=== PATIENT | female | born 1960 | race Caucasian/White ===

== ENCOUNTER 2022-08-25 06:00 | Day surgery (SDC) | payer BC ==
--- NOTE | 2022-08-24 11:30 | HP ---
DATE OF SURGERY: 08/25/2022 HISTORY OF PRESENT ILLNESS: The patient is a 61-year-old female presents for colonoscopy. Last colonoscopy was seven to ten years ago and she had some polyps. She reports that her mother had colon cancer. She denies GI signs or symptoms at this time. PAST MEDICAL HISTORY: Hypertension, diabetes mellitus type II, thyroid, migraine, arthritis, gastroesophageal reflux disease. PAST SURGICAL HISTORY: Cataract. Cardiac stent. Tonsillectomy. Thyroidectomy. section. Hysterectomy. Cholecystectomy. Fem/fem bypass. ALLERGIES: NKDA. MEDICATIONS: Aspirin, metformin, bupropion, atorvastatin, duloxetine, Xanax, potassium, levothyroxine, valsartan, trazodone, metoprolol, Chlorthalidone, gabapentin, hydralazine. FAMILY HISTORY: Colon cancer. Lung cancer. Hypertension. SOCIAL HISTORY: Light tobacco use, occasional alcohol. REVIEW OF SYSTEMS: CONSTITUTIONAL: Denies fever or chills. CHEST: Denies shortness of breath. CVS: Denies chest pain. ABDOMEN: Denies abdominal pain. PHYSICAL EXAMINATION: GENERAL: No acute distress. CHEST: Nonlabored. No shortness of breath. CVS: Regular rate and rhythm. ABDOMEN: Soft. IMPRESSION: History of colon polyps, family history of colon cancer. PLAN: Colonoscopy with Dr. Ricki Shepard. As dictated by China King NP.
[2022-08-25] MEDS ORDERED: Lactated Ringers 1,000 ML IV SCH (06:30)
[2022-08-25] MEDS ORDERED: DIPRIVAN 200 MG/20 ML IV ONE ×2 (06:58→08:35)
[2022-08-25] MEDS ORDERED: Versed 2 MG/2 ML Injection ONE (06:59)
[2022-08-25 07:50] LABS: ALBUMIN 3.8 g/dL (3.5-5.0); ALKALINE PHOSPHATASE 100 U/L (38-126); ANION GAP 15.3 MEQ/L (5-15); BLOOD UREA NITROGEN 12 mg/dL (7-17); CHLORIDE 102 mmol/L (98-107); Calcium 8.9 mg/dL (8.4-10.2); Carbon Dioxide 30 mmol/L (22-30); Creatinine 1 0.72 mg/dL (0.52-1.04); EST GLOMERULAR FILTRATION RATE > 60.0 ML/MIN; Glucose 112 mg/dL (74-106); Potassium 3.2 mmol/L (3.5-5.1); SGOT/AST 28 U/L (14-36); SGPT/ALT 21 U/L (0-35); SODIUM 143 mmol/L (137-145); Total Protein 6.6 g/dL (6.3-8.2)
[2022-08-25 09:26] VITALS: O2SAT 97
[2022-08-25 09:56] VITALS: BP 113/87; PULSE 68
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
== END 2022-08-25 10:03 | disposition home or self-care (01) ==
LOC: SDC 06:00
PROVIDERS: ATTEND Surgery
DX: Z09 Encounter for follow-up examination after completed treatment for conditions other than malignant neoplasm (principal); Z86.010 Personal history of colon polyps; Z80.0 Family history of malignant neoplasm of digestive organs; D12.7 Benign neoplasm of rectosigmoid junction; D12.2 Benign neoplasm of ascending colon; D12.5 Benign neoplasm of sigmoid colon
CPT/HCPCS: 36415; 80053; 93005; J2250; J2704

== ENCOUNTER 2024-07-02 13:26 | Emergency (ER) | payer BC ==
[2024-07-02 14:19] VITALS: TEMP 98.1
--- NOTE | 2024-07-02 14:31 | ERPHSYRPT ---
- History of Present Illness Time Seen by Provider: 07/02/24 14:30 Source: patient Exam Limitations: no limitations Patient Subjective Stated Complaint: pt here today for left lower leg pain off and on for a couple days now, she denies any injury she hx of femoral bypass in that leg Triage Nursing Assessment: pt alert, walked in, resp easy, skin w/d/p left leg cooler to touch, moves toes well,no pedal pulse felt, dr bain to get pulse with doppler . Physician History: 63-year-old female presents to our ED for evaluation of an ischemic limb. Patient states her symptoms started yesterday. Patient states her pain was unbearable last night. However this afternoon pain became acutely worse. Patient reports a history of a left iliac artery stent. This was done at [facility] per patient. Patient sees Dr. Senior locally. We contacted [facility] for transfer. However Dr. Senior the vascular surgeon only sees vascular issues from the waist up not down involving the lower extremities. Patient's pain described as an ache that is constant. She is able to move her ankle and her toes however her sensation is diminished. Patient's PT DP pulses not dopplerable. Her popliteal pulse is not dopplerable. Patient has monophasic femoral pulse. Patient otherwise feels well. Patient's left lower extremity is cool to touch. It is pale appearing. Patient denies trauma. No systemic manifestation of her symptomology. No chest pain or shortness of breath. No nausea vomiting or diaphoresis. Significant other at bedside. They voiced no other complaints or concerns at this time. Portions of this note were created with voice recognition technology. There may be grammatical, spelling, punctuation or sound alike errors Timing/Duration: yesterday Severity: moderate Modifying Factors: Improves With: nothing Associated Symptoms: denies symptoms Allergies/Adverse Reactions: No Known Drug Allergies Allergy (Verified 07/02/24 13:48) Home Medications: Aspirin EC 81 mg [Ecotrin 81 mg] 2 tab PO DAILY 07/18/22 [History] Atorvastatin Calcium 40 mg PO HS 07/18/22 [History] Chlorthalidone 25 mg PO DAILY 07/18/22 [History] Cholecalciferol (Vitamin D3) [Vitamin D] 2,000 units PO DAILY 07/18/22 [History] Duloxetine HCl 30 mg [Cymbalta 30 MG Capsule] 60 mg PO DAILY 07/18/22 [History] Gabapentin [Neurontin ] 400 mg PO HS 07/18/22 [History] Hydralazine HCl 25 mg PO BID 07/18/22 [History] Levothyroxine Sodium 112 Mcg [Synthroid 112 Mcg] 112 mcg PO DAILY 07/18/22 [History] Metformin HCl 500 mg [Glucophage 500 MG] 500 mg PO BID 07/18/22 [History] Metoprolol Succinate 100 mg [Toprol Xl 100 MG] 100 mg PO DAILY 07/18/22 [History] Potassium Chloride 10 meq PO DAILY 07/18/22 [History] Valsartan 320 mg PO DAILY 07/18/22 [History] Hx Influenza Vaccination/Date Given: Yes Hx Pneumococcal Vaccination/Date Given: Yes Immunizations Up to Date: Yes Travel Risk - International Travel Have you traveled outside of the country in past 3 weeks: No - Emerging Infectious Disease Are you exhibiting symptoms associated with any current EIDs: No - Review of Systems Constitutional: No Symptoms, No Fever, No Chills Eyes: No Symptoms Ears, Nose, & Throat: No Symptoms Respiratory: No Symptoms, No Cough, No Dyspnea Cardiac: No Symptoms, No Chest Pain, No Edema, No Syncope Abdominal/Gastrointestinal: No Symptoms, No Abdominal Pain, No Nausea, No Vomiting, No Diarrhea Genitourinary Symptoms: No Symptoms, No Dysuria Musculoskeletal: No Symptoms, No Back Pain, No Neck Pain Skin: No Symptoms, No Rash Neurological: No Symptoms, No Dizziness, No Focal Weakness, No Sensory Changes Psychological: No Symptoms Endocrine: No Symptoms Hematologic/Lymphatic: No Symptoms Immunological/Allergic: No Symptoms All Other Systems: Reviewed and Negative - Past Medical History Pertinent Past Medical History: Yes Neurological History: No Pertinent History ENT History: No Pertinent History Cardiac History: Coronary Artery Disease, Deep Vein Thrombosis, High Cholesterol, Hypertension Respiratory History: COPD Endocrine Medical History: Diabetes Type II Musculoskeletal History: No Pertinent History GI Medical History: No Pertinent History History: No Pertinent History Psycho-Social History: Depression Female Reproductive Disorders: No Pertinent History Other Medical History: left iliac artery-fem/fem bypass - Past Surgical History Past Surgical History: Yes Neuro Surgical History: No Pertinent History Cardiac: Other Respiratory: No Pertinent History Gastrointestinal: Cholecystectomy Genitourinary: No Pertinent History Musculoskeletal: No Pertinent History Female Surgical History: Hysterectomy, Section Other Surgical History: fen/fen bypass 2018, cardiac stent placed - Social History Smoking Status: Current every day smoker Exposure to second hand smoke: Yes Drug Use: none - Social Determinants of Health Will the patient participate in the screening: Declined to provide - Nursing Vital Signs Nursing Vital Signs: Initial Vital Signs Temperature 98.1 F 07/02/24 14:10 Pulse Rate 70 07/02/24 14:10 Respiratory Rate 18 07/02/24 14:10 Blood Pressure 164/84 07/02/24 14:10 O2 Sat by Pulse Oximetry 98 07/02/24 14:10 Pain Scale Pain Intensity 8 - Physical Exam General Appearance: no apparent distress, alert Eye Exam: PERRL/EOMI, eyes nml inspection Ears, Nose, Throat Exam: normal ENT inspection, moist mucous membranes Neck Exam: normal inspection, full range of motion Respiratory Exam: normal breath sounds, lungs clear, No respiratory distress Cardiovascular Exam: regular rate/rhythm, normal heart sounds, normal peripheral pulses Gastrointestinal/Abdomen Exam: soft, normal bowel sounds, No tenderness, No mass Back Exam: normal inspection, normal range of motion, No CVA tenderness, No vertebral tenderness Extremity Exam: normal inspection, normal range of motion, pelvis stable, other (Monophasic dopplerable left femoral pulse. None dopplerable left popliteal and nondopplerable left PT DP pulse. The extremity is cool to touch. Cap refill greater than 3 seconds. Sensation diminished. Active range of motion within normal limits.) Neurologic Exam: alert, oriented x 3, cooperative, normal mood/affect, nml cerebellar function, nml station & gait, sensation nml, No motor deficits Skin Exam: normal color, warm, dry, No rash Lymphatic Exam: No adenopathy SpO2 Interpretation: normal SpO2: 98 O2 Delivery: Room Air - Course Nursing assessment & vital signs reviewed: Yes - CT Exams Abdomen/Pelvis CT Interpretation: Tele-radiologist Report (Occluded left aortoiliac stent left popliteal artery. Right adrenal mass) Ordered Tests: Active Orders 24 hr Category Date Time Status Alkylation Operator STAT Care 07/02/24 14:25 Active IV Insertion STAT Care 07/02/24 14:24 Active Pulse Oximetry (ED) STAT Care 07/02/24 14:24 Active Telemetry q4h Care 07/02/24 15:45 Active CTA ABD/PEL W FEM RUNOFF [CT] Stat Exams 07/02/24 14:34 Completed CBC W DIFF Stat Lab 07/02/24 15:20 Completed CMP Stat Lab 07/02/24 15:20 Completed UA W/RFX UR CULTURE Stat Lab 07/02/24 15:26 Ordered Medication Summary Generic Name Dose Route Start Last Admin Trade Name Kassy PRN Reason Stop Dose Admin Potassium Chloride 20 meq in 100 mls @ 50 mls/hr 07/02/24 15:45 07/02/24 15:50 Potassium Chloride 20 Meq In Water 100ml IV 07/02/24 19:44 50 mls/hr Q2H DAMIÁN Administration Sodium Chloride 1,000 mls @ 100 mls/hr 07/02/24 16:00 07/02/24 15:50 Sodium Chloride 0.9% 1000 Ml IV 08/01/24 15:59 100 mls/hr .Q10H DAMIÁN Administration Discontinued Medications Generic Name Dose Route Start Last Admin Trade Name Kassy PRN Reason Stop Dose Admin Morphine Sulfate 4 mg 07/02/24 15:48 07/02/24 15:54 Morphine Sulfate 4 Mg/Ml Injection IV 07/02/24 15:49 4 mg STAT ONE Administration Morphine Sulfate Confirm 07/02/24 15:51 Morphine Sulfate 4 Mg/Ml Injection Administered 07/02/24 15:52 Dose 4 mg .ROUTE .STK-MED ONE Ondansetron HCl 4 mg 07/02/24 15:48 07/02/24 15:52 Ondansetron Hcl 4 Mg/2 Ml Vial IV 07/02/24 15:49 4 mg STAT ONE Administration Ondansetron HCl Confirm 07/02/24 15:51 Ondansetron Hcl 4 Mg/2 Ml Vial Administered 07/02/24 15:52 Dose 4 mg .ROUTE .STK-MED ONE Lab/Rad Data: Laboratory Result Diagrams 07/02/24 15:20 07/02/24 15:20 Laboratory Results 07/02/24 07/02/24 Range/Units 15:20 15:20 WBC 8.7 (3.98-10.04) x10^3/uL RBC 4.36 (3.93-5.22) x10^6/uL Hgb 13.2 (11.2-15.7) g/dL Hct 40.1 (34.1-44.9) % MCV 92.0 (79.4-94.8) fL MCH 30.3 (25.6-32.2) pg MCHC 32.9 (32.2-35.5) g/dL RDW 13.6 (11.7-14.4) % Plt Count 164 L (182-369) x10^3/uL MPV 10.5 (9.4-12.3) fL Gran % 62.5 (34.0-71.1) % Immature Gran % (Auto) 0.6 H (0.001-0.429) % Nucleat RBC Rel Count 0.0 (0.00-0.2) % Eos # (Auto) 0.03 L (0.04-0.36) x10^3/uL Immature Gran # (Auto) 0.05 H (0.001-0.031) x10^3u/L Absolute Lymphs (auto) 2.60 (1.18-3.74) x10^3/uL Absolute Monos (auto) 0.58 (0.24-0.86) x10^3/uL Absolute Nucleated RBC 0.00 (0.00-0.012) x10^3u/L Lymphocytes % 29.8 (19.3-51.7) % Monocytes % 6.6 (4.7-12.5) % Eosinophils % 0.3 L (0.7-5.8) % Basophils % 0.2 (0.1-1.2) % Absolute Granulocytes 5.45 (1.56-6.13) x10^3/uL Basophils # 0.02 (0.01-0.08) x10^3/uL Sodium 133 L (135-145) mmol/L Potassium 3.3 L (3.5-5.1) mmol/L Chloride 96 L (98-107) mmol/L Carbon Dioxide 28 (22-30) mmol/L Anion Gap 11.9 (5-15) MEQ/L BUN 22 H (7-17) mg/dL Creatinine 0.91 (0.52-1.04) mg/dL Estimated GFR 71.8 ML/MIN Glucose 86 (74-106) mg/dL Calcium 8.8 (8.4-10.2) mg/dL Total Bilirubin 0.80 (0.2-1.3) mg/dL AST 26 (14-36) U/L ALT 22 (0-35) U/L Alkaline Phosphatase 77 (38-126) U/L Serum Total Protein 6.7 (6.3-8.2) g/dL Albumin 3.8 (3.5-5.0) g/dL - Progress Progress: improved Progress Note: Dr. Galindo spoke to the transfer center at approximately 230. They advised obtaining imaging studies prior to transfer. I disagreed. I advised them that patient has an acutely ischemic limb and that patient needs immediate transfer. [place] [facility] is contacting the vascular surgeon Dr. Thornton to advise if they are willing to accept without an imaging study. In the meantime we have ordered an imaging study, CTA abdomen pelvis with runoff 07/02/24 14:34 63-year-old female presents to our ED for evaluation of left leg pain. Physical exam reveals an ischemic limb. Diminished sensation however active motion present. The extremity is cool to touch and pale with diminished cap refill. Monophasic left femoral pulse observed. No pulse dopplerable at the left po pliteal or left PT DP arteries. CT scan reveals an occluded left aortoiliac stent left popliteal artery and a right adrenal mass. Other findings observed. Please see CT scan note for details. Patient received 4 mg morphine for pain control. Patient was hypokalemic at 3.3. K rider hung. IV fluids administered. Patient accepted by Dr. Thornton at 1508. Plan of care discussed with patient. She agrees to transfer to via [employer] [facility] for further evaluation and treatment. Complexity of problem addressed is moderate acute complicated. Critical care approximately 120 minutes. Immediate intervention indicated to prevent further deterioration of an ischemic limb. Complexity of data reviewed and analyzed is extensive. Test ordered test reviewed results analyzed and correlated clinically with history and physical exam. Case discussed with transfer center/vascular surgeon who accepts transfer at 1508. Vital stable. Time spent to transfer patient is approximately 30 minutes. Plan of care established for shared decision making. No social determinants of health present to impede follow-up. Portions of this note were created with voice recognition technology. There may be grammatical, spelling, punctuation or sound alike errors 07/02/24 14:38 Counseled pt/family regarding: lab results, diagnosis, rad results - Departure Departure Disposition: Home Clinical Impression: Ischemic leg, Hypokalemia, Right adrenal mass, Occluded left aortoiliac stent, Left popliteal artery occlusion Condition: Stable Critical Care Time: Yes Critical Care Time(excluding separately billable procedures): Critical 105-134 mins Referrals: GEOVANI BARBA [Primary Care Provider] - Follow up/PCP as directed
[2024-07-02 15:25] LABS: Absolute Neutrophil Ct (ANC) 5.45 x10^3/uL (1.56-6.13); BASOPHIL % 0.2 % (0.1-1.2); Basophil (Absolute #) 0.02 x10^3/uL (0.01-0.08); Eosinophil % 0.3 % (0.7-5.8); Eosinophil (Absolute #) 0.03 x10^3/uL (0.04-0.36); Hematocrit 40.1 % (34.1-44.9); Hemoglobin 13.2 g/dL (11.2-15.7); IMMATURE GRAN # 0.05 x10^3u/L (0.001-0.031); IMMATURE GRAN % 0.6 % (0.001-0.429); Lymphocytes % 29.8 % (19.3-51.7); Mean Corpuscular Hemoglobin 30.3 pg (25.6-32.2); Mean Corpuscular Hgb Concent. 32.9 g/dL (32.2-35.5); Mean Platelet Volume 10.5 fL (9.4-12.3); Monocyte (Absolute #) 0.58 x10^3/uL (0.24-0.86); Monocytes % 6.6 % (4.7-12.5); Neutrophil % 62.5 % (34.0-71.1); Platelet Count 164 x10^3/uL (182-369); Red Blood Count 4.36 x10^6/uL (3.93-5.22); Red Cell Distribution Width 13.6 % (11.7-14.4); White Blood Count 8.7 x10^3/uL (3.98-10.04)
[2024-07-02 15:38] LABS: ALBUMIN 3.8 g/dL (3.5-5.0); ANION GAP 11.9 MEQ/L (5-15); BILIRUBIN,TOTAL 0.8 mg/dL (0.2-1.3); Calcium 8.8 mg/dL (8.4-10.2); Creatinine 1 0.91 mg/dL (0.52-1.04); EST GLOMERULAR FILTRATION RATE 71.8 ML/MIN; Potassium 3.3 mmol/L (3.5-5.1); Total Protein 6.7 g/dL (6.3-8.2)
--- NOTE | 2024-07-02 15:45 | XRAY ---
Indication: Ischemic limb. Conventional contrast-enhanced CTA abdomen/pelvis with bilateral runoff performed using 120 cc Isovue 370 contrast. 2-D sagittal and coronal reformatted images obtained. Additional 3-D reformatted images obtained using separate workstation. Comparison: None Proximal abdominal aorta demonstrates mild arteriosclerotic disease with patent branching celiac, superior mesenteric, and left/right main renal arteries. Inferior to renal artery branch, there is aorto left iliac stent that is occluded. Reconstitution left common femoral artery via deep branches with minimal eccentric calcifications distally. Femoral-femoral bypass graft that appears patent. Left leg runoff demonstrates normal CTA appearance to the deep femoral, superficial femoral, and mid to proximal popliteal arteries. Occlusion distal popliteal artery and proximal tibial peroneal trunk. Reconstitution distal tibioperoneal trunk and also trifurcation vessels via deep intramuscular branches. Trifurcation vessels taper off distally above ankle. Right leg runoff demonstrates occlusion right common iliac, external iliac, and majority common femoral arteries. Reconstitution distal common femoral via femoral-femoral bypass graft. Normal CTA appearance to the superficial femoral, deep femoral, and popliteal arteries. Trifurcation vessels demonstrates peroneal artery tapering off by lower leg level. Only patent anterior and posterior tibial arteries cross ankle joint to supply right foot. Incidental 2.6 x 2.2 cm left and 1.7 x 1.3 cm right adrenal gland masses that appear to be adenomas as seen on CT low-dose lung screening exam December 13, 2023. Noncontrasted stomach and bowel loops appear nonobstructed. Previous cholecystectomy and hysterectomy. No free fluid/air. Remaining liver, pancreas, spleen, kidneys, ureters, and bladder are unremarkable. No pathologic retroperitoneal lymphadenopathy. Lung bases clear. Heart not enlarged. Osseous structures intact with mild L5-S1 degenerative vacuum disc phenomena. Impression: 1. Mildly arteriosclerotic proximal abdominal aorta. Occluded infrarenal aorta left iliac stent. Probable patent femoral-femoral bypass graft. 2. Left leg runoff demonstrates occluded left iliac vessels with reconstitution distal common femoral artery. Normal CTA appearance to the femoral and popliteal arteries. Occlusion distal popliteal artery/tibial peroneal trunk with immediate reconstitution. Trifurcation vessels all taper off by lower leg level with no opacified artery crossing ankle joint. 3. Right leg runoff demonstrates occlusion right iliac vessels. Remaining right leg runoff widely patent with two-vessel runoff into right foot. 4. Incidental bilateral adrenal adenomas and lumbosacral junction degenerative disc disease.
[2024-07-02 15:47] VITALS: O2SAT 98
[2024-07-02] MEDS ORDERED: Sodium Chloride 0.9% 1000 ML 1,000 ML ONE (15:48)
[2024-07-02] MEDS ORDERED: POTASSIUM CHLORIDE 20 mEq IN WATER 100ML 100 ML IV ONE (15:48)
[2024-07-02] MEDS: Sodium Chloride 0.9% 1000 ML 1,000 ML IV SCH (15:50)
[2024-07-02] MEDS: POTASSIUM CHLORIDE 20 mEq IN WATER 100ML 20 MEQ/100 ML BAG IV SCH (15:50)
[2024-07-02] MEDS ORDERED: Zofran 4 MG/2 ML VIAL ONE (15:51)
[2024-07-02] MEDS ORDERED: MORPHINE SULFATE 4 MG INJ ONE (15:51)
[2024-07-02] MEDS: Zofran 4 MG/2 ML VIAL IV ONE (15:52)
[2024-07-02] MEDS: MORPHINE SULFATE 4 MG INJ IV ONE (15:54)
[2024-07-02 16:05] VITALS: BP 142/59; PULSE 68; RESP 16
[2024-07-02 16:28] LABS: Appearance Clear (Clear); Bacteria Rare /HPF (None Seen); Bilirubin Negative (Negative); Blood Negative (Negative); Epithelial Cells Few /HPF (None Seen); Glucose, Urine Negative (Negative); Hyaline Casts NONE SEEN /LPF (0-2); Ketones Negative (Negative); Leukocyte Esterase Negative (Negative); Nitrite Negative (Negative); Ph 6.5 (4.6-8.0); Protein,Urine Dip Negative (Negative); RBC 0-2 /HPF (0-5); Specific Gravity 1.025 (1.005-1.030); Urobilinogen 0.2 mg/dL (0.2); WBC 0-2 /HPF (0-5)
== END 2024-07-02 16:00 | disposition short-term general hospital (02) ==
LOC: ED 13:26
DX: I70.222 Atherosclerosis of native arteries of extremities with rest pain, left leg (principal); E87.6 Hypokalemia; E27.8 Other specified disorders of adrenal gland; I70.8 Atherosclerosis of other arteries; E78.5 Hyperlipidemia, unspecified; I10 Essential (primary) hypertension; E11.9 Type 2 diabetes mellitus without complications; Z79.84 Long term (current) use of oral hypoglycemic drugs; Z79.899 Other long term (current) drug therapy; Z72.0 Tobacco use
CPT/HCPCS: 36415; 75635; 80053; 81001; 85025; 93041; 94760; 96365; 96366; 96374; 96375; 99285; 99291; 99292; J2270; J2405; J3480

== ENCOUNTER 2024-08-09 11:39 | Emergency (ER) | payer BC ==
[2024-08-09 12:12] VITALS: TEMP 98.2
--- NOTE | 2024-08-09 12:29 | ERPHSYRPT ---
- History of Present Illness Time Seen by Provider: 08/09/24 12:11 Historian: patient Exam Limitations: no limitations Patient Subjective Stated Complaint: pt reports recent surgery r/t an occluded femoral artery, pt states her initial surgery was in 2017 and it failed in 07/23, at that time she was transferred to [facility], and had surgery on 07/03/24. pt reports post op infection and wound for which she is still getting treatment. pt reports diarrhea for the last month r/t antibiotics. pt reports bright red blood from her rectum that started last evening, pt states that the blood flow is heavy and it contains clots. pt reports she is also unable to urinate. Triage Nursing Assessment: pt is aox3, pupils perrl, afebrile, resps easy and non labored, cap refill < 3 seconds, radial pulses strong and equal, pt abd is soft, tender to all quads, slightly distended. pt with abdominal wound to the LLQ with isma drain in place. dressing is CDI. isma drainage is sanguineous. pt with healing surgical incision to the left upper thigh. pt appears pale. mucous membranes dry. Physician History: Pt states she has had constant lower mid abdominal pain and diarrhea for the past month and started with rectal bleeding last night. Pt states she is on blood thinners. Pt told me she was admitted to [facility] on 07/02/24 for a left iliac occlusion and had 3 stents placed; states the incision opened and on 07/22/[address] [facility] where the wound was cleaned out and she stayed in the hospital for about 1 week. Pt denies chest pain, shortness of air, fever, vomiting. Allergies/Adverse Reactions: No Known Drug Allergies Allergy (Verified 08/09/24 12:12) Home Medications: Aspirin EC 81 mg [Ecotrin 81 mg] 2 tab PO DAILY 07/18/22 [History] Atorvastatin Calcium 40 mg PO HS 07/18/22 [History] Chlorthalidone 25 mg PO DAILY 07/18/22 [History] Cholecalciferol (Vitamin D3) [Vitamin D] 2,000 units PO DAILY 07/18/22 [History] Duloxetine HCl 30 mg [Cymbalta 30 MG Capsule] 60 mg PO DAILY 07/18/22 [History] Gabapentin [Neurontin ] 400 mg PO HS 07/18/22 [History] Hydralazine HCl 25 mg PO BID 07/18/22 [History] Levothyroxine Sodium 112 Mcg [Synthroid 112 Mcg] 112 mcg PO DAILY 07/18/22 [History] Metformin HCl 500 mg [Glucophage 500 MG] 500 mg PO BID 07/18/22 [History] Metoprolol Succinate 100 mg [Toprol Xl 100 MG] 100 mg PO DAILY 07/18/22 [History] Potassium Chloride 10 meq PO DAILY 07/18/22 [History] Valsartan 320 mg PO DAILY 07/18/22 [History] Hx Tetanus, Diphtheria Vaccination/Date Given: Yes Hx Influenza Vaccination/Date Given: Yes Hx Pneumococcal Vaccination/Date Given: Yes Immunizations Up to Date: No Travel Risk - International Travel Have you traveled outside of the country in past 3 weeks: No - Emerging Infectious Disease Are you exhibiting symptoms associated with any current EIDs: No - Review of Systems Constitutional: No Fever Respiratory: No Dyspnea Cardiac: No Chest Pain Abdominal/Gastrointestinal: Abdominal Pain, Hematochezia, No Vomiting Neurological: No Headache - Past Medical History Pertinent Past Medical History: Yes Neurological History: No Pertinent History ENT History: No Pertinent History Cardiac History: Coronary Artery Disease, Deep Vein Thrombosis, High Cholesterol, Hypertension Respiratory History: COPD Endocrine Medical History: Diabetes Type II Musculoskeletal History: No Pertinent History GI Medical History: No Pertinent History History: No Pertinent History Psycho-Social History: Depression Female Reproductive Disorders: No Pertinent History Other Medical History: left iliac artery-fem/fem bypass - Past Surgical History Past Surgical History: Yes Neuro Surgical History: No Pertinent History Cardiac: Other Respiratory: No Pertinent History Gastrointestinal: Cholecystectomy Genitourinary: No Pertinent History Musculoskeletal: No Pertinent History Female Surgical History: Hysterectomy, Section Other Surgical History: fen/fen bypass 2018, cardiac stent placed - Social History Smoking Status: Former smoker Exposure to second hand smoke: Yes Drug Use: none - Social Determinants of Health Will the patient participate in the screening: Declined to provide - Nursing Vital Signs Nursing Vital Signs: Initial Vital Signs Temperature 98.2 F 08/09/24 11:44 Pulse Rate 78 08/09/24 11:44 Respiratory Rate 16 08/09/24 11:44 Blood Pressure 130/88 08/09/24 11:44 O2 Sat by Pulse Oximetry 100 08/09/24 11:44 Pain Scale Pain Intensity 8 - Physical Exam General Appearance: alert Eye Exam: eyes nml inspection Ears, Nose, Throat Exam: pharynx normal Neck Exam: normal inspection Respiratory Exam: chest tenderness Cardiovascular Exam: normal heart sounds Gastrointestinal/Abdomen Exam: soft, normal bowel sounds, other (healing wound over left inguinal area without discharge; wound vac present.) Rectal Exam: other (no external hemorrhoids seen(ER Nurse present during exam); bright red blood dripping from anus.) Back Exam: normal inspection Neurologic Exam: alert, cooperative Skin Exam: pale SpO2 Interpretation: normal SpO2: 100 O2 Delivery: Room Air - Course Nursing assessment & vital signs reviewed: Yes - CT Exams Abdomen/Pelvis CT Interpretation: Discussed w/radiologist (New colonic fecal stasis. New rectal circumferential wall thickening with stranding favoring proctitis. New left groin postsurgical changes with new left common femoral stent. Also new left groin subcutaneous fluid collection presumed postoperative hematoma/seroma. Infection not completely excluded.) Ordered Tests: Active Orders 24 hr Category Date Time Status Catheter-Waldorf Turk STAT Care 08/09/24 12:27 Active IV Insertion-2nd Peripheral STAT Care 08/09/24 12:25 Active ABDOMEN AND PELVIS W/0 CONTRAS [CT] Stat Exams 08/09/24 12:27 Completed BLOOD CULTURE Stat Lab 08/09/24 12:41 Received CBC W DIFF Stat Lab 08/09/24 12:59 Completed CMP Stat Lab 08/09/24 12:59 Completed CULTURE,URINE Stat Lab 08/09/24 13:13 Received PROTIME WITH INR Stat Lab 08/09/24 12:59 Completed PTT Stat Lab 08/09/24 12:59 Completed UA W/RFX UR CULTURE Stat Lab 08/09/24 13:13 Completed Medication Summary Generic Name Dose Route Start Last Admin Trade Name Freq PRN Reason Stop Dose Admin Octreotide Acetate 150 mcg/ 103 mls @ 34.333 mls/hr 08/09/24 13:45 08/09/24 13:46 Sodium Chloride IV 08/09/24 16:44 34.333 mls/hr ONCE ONE 34.33 mls/hr Administration Sodium Chloride 1,000 mls @ 100 mls/hr 08/09/24 14:15 08/09/24 14:08 Sodium Chloride 0.9% 1000 Ml IV 09/08/24 14:14 100 mls/hr .Q10H DAMIÁN Administration Octreotide Acetate 50 mcg 08/09/24 12:45 08/09/24 13:35 Octreotide Acetate 50 Mcg/Ml Ampul IV 09/08/24 12:44 50 mcg 1XONLY DAMIÁN Administration Discontinued Medications Generic Name Dose Route Start Last Admin Trade Name Boboq PRN Reason Stop Dose Admin Ceftriaxone Sodium 1,000 mg 08/09/24 14:45 08/09/24 14:54 Ceftriaxone Sodium 1000 Mg Inj Vial IM 08/09/24 14:46 1,000 mg STAT ONE Administration Ceftriaxone Sodium Confirm 08/09/24 14:51 Ceftriaxone Sodium 1000 Mg Inj Vial Administered 08/09/24 14:52 Dose 1,000 mg .ROUTE .STK-MED ONE Hydromorphone HCl 0.5 mg 08/09/24 14:46 08/09/24 14:53 Hydromorphone 1 Mg/1ml Inj IM 08/09/24 14:47 0.5 mg STAT ONE Administration Hydromorphone HCl Confirm 08/09/24 14:51 Hydromorphone 1 Mg/1ml Inj Administered 08/09/24 14:52 Dose 1 mg .ROUTE .STK-MED ONE Sodium Chloride 1,000 mls @ 999 mls/hr 08/09/24 12:25 08/09/24 14:04 Sodium Chloride 0.9% 1000 Ml IV 08/09/24 13:25 Infused .Q1H1M STA Infusion Sodium Chloride Confirm 08/09/24 12:36 Sodium Chloride 0.9% 1000 Ml Administered 08/09/24 12:37 Dose 1,000 mls @ ud .ROUTE .STK-MED ONE Lidocaine HCl Confirm 08/09/24 14:51 Lidocaine Hcl 1% 20 Ml Mdv 20 Ml Ml Administered 08/09/24 14:52 Dose 3 ml .ROUTE .STK-MED ONE Pantoprazole Sodium 40 mg 08/09/24 12:25 08/09/24 12:37 Pantoprazole 40 Mg Vial IV 08/09/24 12:26 40 mg STAT ONE Administration Pantoprazole Sodium Confirm 08/09/24 12:36 Pantoprazole 40 Mg Vial Administered 08/09/24 12:37 Dose 40 mg IV .STK-MED ONE Lab/Rad Data: Laboratory Result Diagrams 08/09/24 12:59 08/09/24 12:59 Laboratory Results 08/09/24 08/09/24 08/09/24 Range/Units 13:13 12:59 12:59 WBC (3.98-10.04) x10^3/uL RBC (3.93-5.22) x10^6/uL Hgb (11.2-15.7) g/dL Hct (34.1-44.9) % MCV (79.4-94.8) fL MCH (25.6-32.2) pg MCHC (32.2-35.5) g/dL RDW (11.7-14.4) % Plt Count (182-369) x10^3/uL MPV (9.4-12.3) fL Gran % (34.0-71.1) % Immature Gran % (Auto) (0.001-0.429) % Nucleat RBC Rel Count (0.00-0.2) % Eos # (Auto) (0.04-0.36) x10^3/uL Immature Gran # (Auto) (0.001-0.031) x10^3u/L Absolute Lymphs (auto) (1.18-3.74) x10^3/uL Absolute Monos (auto) (0.24-0.86) x10^3/uL Absolute Nucleated RBC (0.00-0.012) x10^3u/L Lymphocytes % (19.3-51.7) % Monocytes % (4.7-12.5) % Eosinophils % (0.7-5.8) % Basophils % (0.1-1.2) % Absolute Granulocytes (1.56-6.13) x10^3/uL Basophils # (0.01-0.08) x10^3/uL PT (9.4-12.5) SECONDS INR (0.8-3.0) APTT (25.1-36.5) SECONDS Sodium (135-145) mmol/L Potassium (3.5-5.1) mmol/L Chloride (98-107) mmol/L Carbon Dioxide (22-30) mmol/L Anion Gap (5-15) MEQ/L BUN (7-17) mg/dL Creatinine (0.52-1.04) mg/dL Estimated GFR ML/MIN Glucose (74-106) mg/dL Calcium (8.4-10.2) mg/dL Total Bilirubin (0.2-1.3) mg/dL AST (14-36) U/L ALT (0-35) U/L Alkaline Phosphatase (38-126) U/L Serum Total Protein (6.3-8.2) g/dL Albumin (3.5-5.0) g/dL Urine Color Yellow (Yellow) Urine Appearance Clear (Clear) Urine pH 7.5 (4.6-8.0) Ur Specific [place] <=1.005 (1.005-1.030) Urine Protein Trace A (Negative) Urine Glucose (UA) Negative (Negative) mg/dL Urine Ketones Negative (Negative) Urine Blood Negative (Negative) Urine Nitrite Negative (Negative) Urine Bilirubin Negative (Negative) Urine Urobilinogen 0.2 (0.2) mg/dL Ur Leukocyte Esterase Trace A (Negative) U Hyaline Cast (Auto) NONE SEEN (0-2) /LPF Urine Microscopic RBC 0-2 (0-5) /HPF Urine Microscopic WBC 0-2 (0-5) /HPF Ur Epithelial Cells None Seen (None Seen) /HPF Urine Bacteria None Seen (None Seen) /HPF Urine Culture Reflexed ORDERED SEPARATELY (NO) ABO Group Rh Factor Antibody Screen (NEGATIVE) Crossmatch COMPATIBLE COMPATIBLE (COMPATIBLE) 08/09/24 08/09/24 08/09/24 Range/Units 12:59 12:59 12:59 WBC (3.98-10.04) x10^3/uL RBC (3.93-5.22) x10^6/uL Hgb (11.2-15.7) g/dL Hct (34.1-44.9) % MCV (79.4-94.8) fL MCH (25.6-32.2) pg MCHC (32.2-35.5) g/dL RDW (11.7-14.4) % Plt Count (182-369) x10^3/uL MPV (9.4-12.3) fL Gran % (34.0-71.1) % Immature Gran % (Auto) (0.001-0.429) % Nucleat RBC Rel Count (0.00-0.2) % Eos # (Auto) (0.04-0.36) x10^3/uL Immature Gran # (Auto) (0.001-0.031) x10^3u/L Absolute Lymphs (auto) (1.18-3.74) x10^3/uL Absolute Monos (auto) (0.24-0.86) x10^3/uL Absolute Nucleated RBC (0.00-0.012) x10^3u/L Lymphocytes % (19.3-51.7) % Monocytes % (4.7-12.5) % Eosinophils % (0.7-5.8) % Basophils % (0.1-1.2) % Absolute Granulocytes (1.56-6.13) x10^3/uL Basophils # (0.01-0.08) x10^3/uL PT 12.3 (9.4-12.5) SECONDS INR 1.14 (0.8-3.0) APTT 28.5 (25.1-36.5) SECONDS Sodium 139 (135-145) mmol/L Potassium 3.7 (3.5-5.1) mmol/L Chloride 104 (98-107) mmol/L Carbon Dioxide 27 (22-30) mmol/L Anion Gap 12.1 (5-15) MEQ/L BUN 13 (7-17) mg/dL Creatinine 1.42 H (0.52-1.04) mg/dL Estimated GFR 42.1 ML/MIN Glucose 109 H (74-106) mg/dL Calcium 8.6 (8.4-10.2) mg/dL Total Bilirubin 0.60 (0.2-1.3) mg/dL AST 28 (14-36) U/L ALT 23 (0-35) U/L Alkaline Phosphatase 86 (38-126) U/L Serum Total Protein 6.3 (6.3-8.2) g/dL Albumin 3.3 L (3.5-5.0) g/dL Urine Color (Yellow) Urine Appearance (Clear) Urine pH (4.6-8.0) Ur Specific [place] (1.005-1.030) Urine Protein (Negative) Urine Glucose (UA) (Negative) mg/dL Urine Ketones (Negative) Urine Blood (Negative) Urine Nitrite (Negative) Urine Bilirubin (Negative) Urine Urobilinogen (0.2) mg/dL Ur Leukocyte Esterase (Negative) U Hyaline Cast (Auto) (0-2) /LPF Urine Microscopic RBC (0-5) /HPF Urine Microscopic WBC (0-5) /HPF Ur Epithelial Cells (None Seen) /HPF Urine Bacteria (None Seen) /HPF Urine Culture Reflexed (NO) ABO Group A Rh Factor POSITIVE Antibody Screen NEGATIVE (NEGATIVE) Crossmatch (COMPATIBLE) 08/09/24 Range/Units 12:59 WBC 10.0 (3.98-10.04) x10^3/uL RBC 2.93 L (3.93-5.22) x10^6/uL Hgb 8.5 L (11.2-15.7) g/dL Hct 27.7 L (34.1-44.9) % MCV 94.5 (79.4-94.8) fL MCH 29.0 (25.6-32.2) pg MCHC 30.7 L (32.2-35.5) g/dL RDW 18.4 H (11.7-14.4) % Plt Count 370 H (182-369) x10^3/uL MPV 9.6 (9.4-12.3) fL Gran % 80.5 H (34.0-71.1) % Immature Gran % (Auto) 0.4 (0.001-0.429) % Nucleat RBC Rel Count 0.0 (0.00-0.2) % Eos # (Auto) 0.05 (0.04-0.36) x10^3/uL Immature Gran # (Auto) 0.04 H (0.001-0.031) x10^3u/L Absolute Lymphs (auto) 1.15 L (1.18-3.74) x10^3/uL Absolute Monos (auto) 0.67 (0.24-0.86) x10^3/uL Absolute Nucleated RBC 0.00 (0.00-0.012) x10^3u/L Lymphocytes % 11.5 L (19.3-51.7) % Monocytes % 6.7 (4.7-12.5) % Eosinophils % 0.5 L (0.7-5.8) % Basophils % 0.4 (0.1-1.2) % Absolute Granulocytes 8.05 H (1.56-6.13) x10^3/uL Basophils # 0.04 (0.01-0.08) x10^3/uL PT (9.4-12.5) SECONDS INR (0.8-3.0) APTT (25.1-36.5) SECONDS Sodium (135-145) mmol/L Potassium (3.5-5.1) mmol/L Chloride (98-107) mmol/L Carbon Dioxide (22-30) mmol/L Anion Gap (5-15) MEQ/L BUN (7-17) mg/dL Creatinine (0.52-1.04) mg/dL Estimated GFR ML/MIN Glucose (74-106) mg/dL Calcium (8.4-10.2) mg/dL Total Bilirubin (0.2-1.3) mg/dL AST (14-36) U/L ALT (0-35) U/L Alkaline Phosphatase (38-126) U/L Serum Total Protein (6.3-8.2) g/dL Albumin (3.5-5.0) g/dL Urine Color (Yellow) Urine Appearance (Clear) Urine pH (4.6-8.0) Ur Specific [place] (1.005-1.030) Urine Protein (Negative) Urine Glucose (UA) (Negative) mg/dL Urine Ketones (Negative) Urine Blood (Negative) Urine Nitrite (Negative) Urine Bilirubin (Negative) Urine Urobilinogen (0.2) mg/dL Ur Leukocyte Esterase (Negative) U Hyaline Cast (Auto) (0-2) /LPF Urine Microscopic RBC (0-5) /HPF Urine Microscopic WBC (0-5) /HPF Ur Epithelial Cells (None Seen) /HPF Urine Bacteria (None Seen) /HPF Urine Culture Reflexed (NO) ABO Group Rh Factor Antibody Screen (NEGATIVE) Crossmatch (COMPATIBLE) - Progress Progress: unchanged Will see patient in: other (Dr. Lawrence([id number]) accepted pt for transfer to [facility] ER.) Counseled pt/family regarding: lab results, diagnosis, rad results Medical Desision Making - Diagnostic Testing Diagnostic test were ordered, analyzed, and reviewed by me: Yes Radiological Interpretation: Discussed w/ radiologist - Departure Departure Disposition: Transfer ([facility] ER) Clinical Impression: GI bleed, Anemia, Proctitis Condition: Critical Critical Care Time: Yes Critical Care Time(excluding separately billable procedures): Critical 30-74 mins Referrals: GEOVANI BARBA [Primary Care Provider] - Follow up/PCP as directed
[2024-08-09] MEDS ORDERED: Sodium Chloride 0.9% 1000 ML 1,000 ML ONE ×2 (12:36→14:05)
[2024-08-09] MEDS ORDERED: PROTONIX 40 MG IV IV ONE (12:36)
[2024-08-09] MEDS: PROTONIX 40 MG IV IV ONE (12:37)
[2024-08-09] MEDS: Sodium Chloride 0.9% 1000 ML 1,000 ML IV STA (12:37)
[2024-08-09 13:04] LABS: Absolute Neutrophil Ct (ANC) 8.05 x10^3/uL (1.56-6.13); BASOPHIL % 0.4 % (0.1-1.2); Basophil (Absolute #) 0.04 x10^3/uL (0.01-0.08); Eosinophil % 0.5 % (0.7-5.8); Eosinophil (Absolute #) 0.05 x10^3/uL (0.04-0.36); Hematocrit 27.7 % (34.1-44.9); Hemoglobin 8.5 g/dL (11.2-15.7); IMMATURE GRAN # 0.04 x10^3u/L (0.001-0.031); IMMATURE GRAN % 0.4 % (0.001-0.429); Lymphocyte (Absolute #) 1.15 x10^3/uL (1.18-3.74); Lymphocytes % 11.5 % (19.3-51.7); Mean Cell Volume 94.5 fL (79.4-94.8); Mean Corpuscular Hgb Concent. 30.7 g/dL (32.2-35.5); Mean Platelet Volume 9.6 fL (9.4-12.3); Monocyte (Absolute #) 0.67 x10^3/uL (0.24-0.86); Monocytes % 6.7 % (4.7-12.5); Neutrophil % 80.5 % (34.0-71.1); Platelet Count 370 x10^3/uL (182-369); Red Blood Count 2.93 x10^6/uL (3.93-5.22); Red Cell Distribution Width 18.4 % (11.7-14.4)
[2024-08-09 13:19] LABS: INR 1.14 (0.8-3.0); PROTIME 12.3 SECONDS (9.4-12.5); PTT 28.5 SECONDS (25.1-36.5)
[2024-08-09 13:28] LABS: ALBUMIN 3.3 g/dL (3.5-5.0); ANION GAP 12.1 MEQ/L (5-15); BILIRUBIN,TOTAL 0.6 mg/dL (0.2-1.3); Calcium 8.6 mg/dL (8.4-10.2); Creatinine 1 1.42 mg/dL (0.52-1.04); EST GLOMERULAR FILTRATION RATE 42.1 ML/MIN; Potassium 3.7 mmol/L (3.5-5.1); Total Protein 6.3 g/dL (6.3-8.2)
[2024-08-09] MEDS: SANDOSTATIN 50MCG/ML IV SCH (13:35)
[2024-08-09] MEDS: SODIUM CHLORIDE 0.9% IV ONE (13:46)
[2024-08-09] MEDS: SANDOSTATIN IV ONE (13:46)
--- NOTE | 2024-08-09 14:00 | XRAY ---
Indication: Pain. GI bleed. Multiple contiguous axial images obtained through the abdomen and pelvis without contrast. Comparison: CTA abdomen/pelvis July 02, 2024. Lung bases remain clear. Heart not enlarged. Noncontrasted stomach and bowel loops appear nonobstructed. New mild/moderate diffuse fecal stasis greatest in ascending and transverse colon. Also new distal rectal circumferential wall thickening with strandy favoring proctitis. Again incidental bilateral adrenal adenomas, cholecystectomy, and hysterectomy. Near empty urinary bladder demonstrates new Turk balloon catheter in situ. No free fluid/air. Again minimally arteriosclerotic proximal aorta with grossly stable infrarenal aortic and left iliac stents. There has been interval surgery with new left common femoral stent and post surgical changes left groin including 2.0 x 2.5 cm subcutaneous fluid collection. Again femoral-femoral bypass graft with interval partial excision of the left anastomosis. Above vascular and post surgical changes limited due to lack of IV contrast. Remaining liver, pancreas, spleen, kidneys, and ureters are unremarkable for noncontrast exam. Osseous structures intact with stable L5-S1 degenerative vacuum disc phenomena. Impression: 1. New colonic fecal stasis. 2. New rectal circumferential wall thickening with stranding favoring proctitis. 3. New left groin postsurgical changes with new left common femoral stent. Also new left groin subcutaneous fluid collection presumed postoperative hematoma/seroma. Infection not completely excluded on this noncontrast exam. 4. Chronic findings including bilateral adrenal adenomas, lumbosacral junction degenerative disc disease, and arteriosclerotic disease with aorto left iliac stent.
[2024-08-09] MEDS: Sodium Chloride 0.9% 1000 ML 1,000 ML IV SCH (14:08)
[2024-08-09 14:14] LABS: Appearance Clear (Clear); Bacteria None Seen /HPF (None Seen); Bilirubin Negative (Negative); Blood Negative (Negative); Epithelial Cells None Seen /HPF (None Seen); Glucose, Urine Negative (Negative); Hyaline Casts NONE SEEN /LPF (0-2); Ketones Negative (Negative); Leukocyte Esterase Trace (Negative); Nitrite Negative (Negative); Ph 7.5 (4.6-8.0); Protein,Urine Dip Trace (Negative); RBC 0-2 /HPF (0-5); Specific Gravity <=1.005 (1.005-1.030); Urobilinogen 0.2 mg/dL (0.2); WBC 0-2 /HPF (0-5)
[2024-08-09 14:15] LABS: ABO TYPING A; Antibody Screen NEGATIVE (NEGATIVE); RH TYPING POSITIVE
[2024-08-09 14:26] LABS: CROSS MATCH (PRBC) COMPATIBLE (COMPATIBLE)
[2024-08-09 14:27] LABS: CROSS MATCH (PRBC) COMPATIBLE (COMPATIBLE)
[2024-08-09 14:36] VITALS: O2SAT 100
[2024-08-09] MEDS ORDERED: Hydromorphone 1 mg/ml Injection ONE (14:51)
[2024-08-09] MEDS ORDERED: XYLOCAINE 1% HCL 20 ML MDV ONE (14:51)
[2024-08-09] MEDS ORDERED: Rocephin 1000 MG INJ ONE (14:51)
[2024-08-09] MEDS: Hydromorphone 1 mg/ml Injection IM ONE (14:53)
[2024-08-09] MEDS: Rocephin 1000 MG INJ IM ONE (14:54)
[2024-08-09 15:11] VITALS: BP 108/73; PULSE 78; RESP 21
== END 2024-08-09 15:42 | disposition short-term general hospital (02) ==
LOC: ED 11:39
DX: K92.2 Gastrointestinal hemorrhage, unspecified (principal); D64.9 Anemia, unspecified; K62.89 Other specified diseases of anus and rectum; R10.33 Periumbilical pain; R19.7 Diarrhea, unspecified; E78.5 Hyperlipidemia, unspecified; I10 Essential (primary) hypertension; E11.9 Type 2 diabetes mellitus without complications; Z79.84 Long term (current) use of oral hypoglycemic drugs; Z79.899 Other long term (current) drug therapy
CPT/HCPCS: 36415; 36430; 51702; 74176; 80053; 81001; 85025; 85610; 85730; 86850; 86900; 86901; 86922; 87040; 87086; 96361; 96372; 96374; 96375; 99291; P9016; 99285; J0696; J1171; J2354

== ENCOUNTER 2024-09-02 13:02 | Emergency (ER) | payer BC ==
--- NOTE | 2024-09-02 13:39 | ERPHSYRPT ---
- History of Present Illness Time Seen by Provider: 09/02/24 13:39 Source: patient, family Exam Limitations: no limitations Physician History: This is a 64-year-old white female patient who has a significant history of peripheral vascular disease and has a left inguinal wound VAC in place. She has also had a left iliac arteryfemoral to femoral bypass procedure done in June 2024. Postoperatively she had left inguinal wound infection and that is why the wound VAC is in place. Her wounds are being monitored by home health twice a week and wound care center once a week. She sees the wound care facility in less than 2 days for reassessment. In the last several days she states that there has been redness and warmth to the area. She made the home health care nurse aware of this. Last evening, the posterior left thigh incision site dehisced for short segment measuring approximately 1 cm with serosanguineous fluid drainage per her report. There is also tenderness present. Patient has a history of hypertension, diabetes, hypothyroidism, depression, hyperlipidemia and coronary artery disease as well as peripheral vascular disease. She has not had a fever or sweats per her report. She is not on any antibiotics Quality: painful Severity: mild Location: extremities (Right lower extremity/posterior medial incision site skin dehiscence) Associated Symptoms: change in skin texture Allergies/Adverse Reactions: No Known Drug Allergies Allergy (Verified 09/02/24 13:53) Home Medications: Aspirin EC 81 mg [Ecotrin 81 mg] 2 tab PO DAILY 07/18/22 [History] Atorvastatin Calcium 40 mg PO HS 07/18/22 [History] Chlorthalidone 25 mg PO DAILY 07/18/22 [History] Cholecalciferol (Vitamin D3) [Vitamin D] 2,000 units PO DAILY 07/18/22 [History] Duloxetine HCl 30 mg [Cymbalta 30 MG Capsule] 60 mg PO DAILY 07/18/22 [History] Gabapentin [Neurontin ] 400 mg PO HS 07/18/22 [History] Hydralazine HCl 25 mg PO BID 07/18/22 [History] Levothyroxine Sodium 112 Mcg [Synthroid 112 Mcg] 112 mcg PO DAILY 07/18/22 [History] Metformin HCl 500 mg [Glucophage 500 MG] 500 mg PO BID 07/18/22 [History] Metoprolol Succinate 100 mg [Toprol Xl 100 MG] 100 mg PO DAILY 07/18/22 [History] Potassium Chloride 10 meq PO DAILY 07/18/22 [History] Valsartan 320 mg PO DAILY 07/18/22 [History] Hx Tetanus, Diphtheria Vaccination/Date Given: Yes Hx Influenza Vaccination/Date Given: Yes Hx Pneumococcal Vaccination/Date Given: Yes Travel Risk - International Travel Have you traveled outside of the country in past 3 weeks: No - Emerging Infectious Disease Are you exhibiting symptoms associated with any current EIDs: No - Review of Systems Constitutional: No Symptoms Eyes: No Symptoms Ears, Nose, & Throat: No Symptoms Respiratory: No Symptoms Cardiac: No Symptoms Abdominal/Gastrointestinal: No Symptoms Genitourinary Symptoms: No Symptoms Musculoskeletal: No Symptoms Skin: Cellulitis, Other (Skin dehiscence mid portion posterior medial left upper leg) Neurological: No Symptoms Psychological: No Symptoms Endocrine: No Symptoms Hematologic/Lymphatic: No Symptoms ( incision site) Immunological/Allergic: No Symptoms All Other Systems: Reviewed and Negative - Past Medical History Pertinent Past Medical History: Yes Neurological History: No Pertinent History ENT History: No Pertinent History Cardiac History: Coronary Artery Disease, Deep Vein Thrombosis, High Cholesterol, Hypertension Respiratory History: COPD Endocrine Medical History: Diabetes Type II Musculoskeletal History: No Pertinent History GI Medical History: No Pertinent History History: No Pertinent History Psycho-Social History: Depression Female Reproductive Disorders: No Pertinent History Other Medical History: left iliac artery-fem/fem bypass - Past Surgical History Past Surgical History: Yes Neuro Surgical History: No Pertinent History Cardiac: Other Respiratory: No Pertinent History Gastrointestinal: Cholecystectomy Genitourinary: No Pertinent History Musculoskeletal: No Pertinent History Female Surgical History: Hysterectomy, Section Other Surgical History: fen/fen bypass 2018, cardiac stent placed - Social History Smoking Status: Former smoker Exposure to second hand smoke: Yes Drug Use: none - Social Determinants of Health Will the patient participate in the screening: Declined to provide - Nursing Vital Signs Nursing Vital Signs: Initial Vital Signs Temperature 99.1 F 09/02/24 13:55 Pulse Rate 87 09/02/24 13:55 Respiratory Rate 16 09/02/24 13:55 Blood Pressure 102/68 09/02/24 13:55 O2 Sat by Pulse Oximetry 96 09/02/24 13:55 Pain Scale Pain Intensity 4 - Physical Exam General Appearance: no apparent distress, alert, anxiety Eye Exam: PERRL/EOMI, eyes nml inspection Ears, Nose, Throat Exam: normal ENT inspection, moist mucous membranes Neck Exam: normal inspection, non-tender, supple, full range of motion Respiratory Exam: airway intact, No chest tenderness, No respiratory distress Gastrointestinal/Abdomen Exam: No tenderness Pelvic Exam: not done Rectal Exam: not done Back Exam: normal inspection, normal range of motion, No CVA tenderness, No vertebral tenderness Extremity Exam: tenderness (The area of the posterior medial left upper leg incision site. There is approximately 1 cm opening of the skin incision site with tunneling. No odor present. We expressed old hematoma and serosanguineous fluid. Cultures were taken), other (Patient's feet are warm. 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, normal mood/affect, nml cerebellar function, nml station & gait, sensation nml Skin Exam: other Lymphatic Exam: No adenopathy SpO2 Interpretation: normal (Above) O2 Delivery: Room Air - Course Nursing assessment & vital signs reviewed: Yes Ordered Tests: Active Orders 24 hr Category Date Time Status IV Insertion STAT Care 09/02/24 14:26 Active Telemetry q4h Care 09/02/24 15:16 Active BLOOD CULTURE Stat Lab 09/02/24 14:49 Received CBC W DIFF Stat Lab 09/02/24 14:37 Completed CMP Stat Lab 09/02/24 14:37 Completed CULTURE,WOUND Stat Lab 09/02/24 14:37 Received Lactic Acid Stat Lab 09/02/24 14:32 Completed PROCALCITONIN Stat Lab 09/02/24 14:37 Completed Medication Summary Generic Name Dose Route Start Last Admin Trade Name Freq PRN Reason Stop Dose Admin Potassium Chloride 20 meq in 100 mls @ 50 mls/hr 09/02/24 15:16 09/02/24 15:25 Potassium Chloride 20 Meq In Water 100ml IV 09/02/24 17:15 50 mls/hr STAT ONE Administration Sodium Chloride 500 mls @ 200 mls/hr 09/02/24 15:45 09/02/24 15:43 Sodium Chloride 0.9% 500 Ml IV 10/02/24 15:44 200 mls/hr .[id number] DAMIÁN Administration Discontinued Medications Generic Name Dose Route Start Last Admin Trade Name Kassy PRN Reason Stop Dose Admin Hydromorphone HCl 1 mg 09/02/24 15:04 09/02/24 15:14 Hydromorphone 1 Mg/1ml Inj IV 09/02/24 15:05 1 mg STAT ONE Administration Hydromorphone HCl Confirm 09/02/24 15:12 Hydromorphone 1 Mg/1ml Inj Administered 09/02/24 15:13 Dose 1 mg .ROUTE .STK-MED ONE Levofloxacin/Dextrose 500 mg in 100 mls @ 100 mls/hr 09/02/24 15:04 09/02/24 16:17 Levofloxacin 500mg/100ml D5w IV 09/02/24 16:03 Infused STAT STA Infusion Levofloxacin/Dextrose Confirm 09/02/24 15:12 Levofloxacin 500mg/100ml D5w Administered 09/02/24 15:13 Dose 500 mg in 100 mls @ ud IV .STK-MED ONE Potassium Chloride Confirm 09/02/24 15:23 Potassium Chloride 20 Meq In Water 100ml Administered 09/02/24 15:24 Dose 100 mls @ ud IV .STK-MED ONE Ondansetron HCl 4 mg 09/02/24 15:04 09/02/24 15:14 Ondansetron Hcl 4 Mg/2 Ml Vial IV 09/02/24 15:05 4 mg STAT ONE Administration Ondansetron HCl Confirm 09/02/24 15:12 Ondansetron Hcl 4 Mg/2 Ml Vial Administered 09/02/24 15:13 Dose 4 mg .ROUTE .STK-MED ONE Potassium Chloride 20 meq 09/02/24 15:16 09/02/24 15:25 Potassium Chloride Tab 10 Meq Tab PO 09/02/24 15:17 20 meq STAT ONE Administration Potassium Chloride Confirm 09/02/24 15:23 Potassium Chloride Tab 10 Meq Tab Administered 09/02/24 15:24 Dose 20 meq .ROUTE .STK-MED ONE Lab/Rad Data: Laboratory Result Diagrams 09/02/24 14:37 09/02/24 14:37 Laboratory Results 09/02/24 09/02/24 09/02/24 Range/Units 14:37 14:37 14:37 WBC 15.6 H (3.98-10.04) x10^3/uL RBC 3.06 L (3.93-5.22) x10^6/uL Hgb 8.5 L (11.2-15.7) g/dL Hct 27.0 L (34.1-44.9) % MCV 88.2 (79.4-94.8) fL MCH 27.8 (25.6-32.2) pg MCHC 31.5 L (32.2-35.5) g/dL RDW 17.3 H (11.7-14.4) % Plt Count 399 H (182-369) x10^3/uL MPV 10.4 (9.4-12.3) fL Gran % 80.1 H (34.0-71.1) % Immature Gran % (Auto) 0.7 H (0.001-0.429) % Nucleat RBC Rel Count 0.0 (0.00-0.2) % Eos # (Auto) 0.07 (0.04-0.36) x10^3/uL Immature Gran # (Auto) 0.11 H (0.001-0.031) x10^3u/L Absolute Lymphs (auto) 1.82 (1.18-3.74) x10^3/uL Absolute Monos (auto) 1.10 H (0.24-0.86) x10^3/uL Absolute Nucleated RBC 0.00 (0.00-0.012) x10^3u/L Lymphocytes % 11.6 L (19.3-51.7) % Monocytes % 7.0 (4.7-12.5) % Eosinophils % 0.4 L (0.7-5.8) % Basophils % 0.2 (0.1-1.2) % Absolute Granulocytes 12.50 H (1.56-6.13) x10^3/uL Basophils # 0.03 (0.01-0.08) x10^3/uL Sodium 135 (135-145) mmol/L Potassium 2.8 L* (3.5-5.1) mmol/L Chloride 97 L (98-107) mmol/L Carbon Dioxide 28 (22-30) mmol/L Anion Gap 12.5 (5-15) MEQ/L BUN 12 (7-17) mg/dL Creatinine 0.80 (0.52-1.04) mg/dL Estimated GFR 83.3 ML/MIN Glucose 110 H (74-106) mg/dL Lactic Acid (0.4-2.0) Calcium 8.5 (8.4-10.2) mg/dL Total Bilirubin 0.50 (0.2-1.3) mg/dL AST 79 H (14-36) U/L ALT 75 H (0-35) U/L Alkaline Phosphatase 127 H (38-126) U/L Serum Total Protein 6.5 (6.3-8.2) g/dL Albumin 3.1 L (3.5-5.0) g/dL Procalcitonin 0.360 H (0.030-0.080) ng/mL 09/02/24 Range/Units 14:32 WBC (3.98-10.04) x10^3/uL RBC (3.93-5.22) x10^6/uL Hgb (11.2-15.7) g/dL Hct (34.1-44.9) % MCV (79.4-94.8) fL MCH (25.6-32.2) pg MCHC (32.2-35.5) g/dL RDW (11.7-14.4) % Plt Count (182-369) x10^3/uL MPV (9.4-12.3) fL Gran % (34.0-71.1) % Immature Gran % (Auto) (0.001-0.429) % Nucleat RBC Rel Count (0.00-0.2) % Eos # (Auto) (0.04-0.36) x10^3/uL Immature Gran # (Auto) (0.001-0.031) x10^3u/L Absolute Lymphs (auto) (1.18-3.74) x10^3/uL Absolute Monos (auto) (0.24-0.86) x10^3/uL Absolute Nucleated RBC (0.00-0.012) x10^3u/L Lymphocytes % (19.3-51.7) % Monocytes % (4.7-12.5) % Eosinophils % (0.7-5.8) % Basophils % (0.1-1.2) % Absolute Granulocytes (1.56-6.13) x10^3/uL Basophils # (0.01-0.08) x10^3/uL Sodium (135-145) mmol/L Potassium (3.5-5.1) mmol/L Chloride (98-107) mmol/L Carbon Dioxide (22-30) mmol/L Anion Gap (5-15) MEQ/L BUN (7-17) mg/dL Creatinine (0.52-1.04) mg/dL Estimated GFR ML/MIN Glucose (74-106) mg/dL Lactic Acid 1.7 (0.4-2.0) Calcium (8.4-10.2) mg/dL Total Bilirubin (0.2-1.3) mg/dL AST (14-36) U/L ALT (0-35) U/L Alkaline Phosphatase (38-126) U/L Serum Total Protein (6.3-8.2) g/dL Albumin (3.5-5.0) g/dL Procalcitonin (0.030-0.080) ng/mL - Progress Progress: improved Progress Note: 09/02/24 15:40 My medical decision making and the assignment of moderate complexity to this patient's medical issue today is based on review of the patient's past medical history, review the patient's medication list, reviewed patient drug allergy list, history present illness and physical findings on examination. The workup of this patient includes placement of a intravenous line, blood cultures, wound cultures, CBC, CMP, procalcitonin, lactic acid level, infusion of Levaquin antibiotic after wound cultures and blood cultures taken 09/02/24 15:42 Differential diagnosis includes but is not limited to cellulitis, subcutaneous hematoma, subcutaneous wound infection, skin dehiscence 09/02/24 16:45 I interpreted the patient's laboratory data results. The laboratory data results show patient with a leukocytosis, chronic anemia (hemoglobin same value as 08/09/2024), hypokalemia and elevated procalcitonin level with a normal lactic acid. Patient's anion gap and CO2 are normal. The patient, the spouse and I had a conversation and the plan for her is to provide her with intravenous antibiotics, oral and intravenous potassium here in the emergency department followed by outpatient follow-up with the wound care c enter at her scheduled appointment in less than 48 hours. We will also remotely send a prescription for Levaquin orally. Counseled pt/family regarding: lab results, diagnosis, need for follow-up Medical Desision Making - Independent Historian Additional History obtained from: Spouse - Diagnostic Testing Diagnostic test were ordered, analyzed, and reviewed by me: Yes - Risk of complications The pt has a mod risk of morbidity or mortality based on: Need for prescription drug management - Departure Departure Disposition: Home Clinical Impression: Left leg cellulitis, Wound dehiscence Condition: Stable Critical Care Time: No Referrals: GEOVANI BARBA [Primary Care Provider] - Follow up/PCP as directed Additional Instructions: Drink plenty of fluids. Take your antibiotics and other medication as prescribed. Keep your appointment at the wound care center scheduled for 09/04/2024. If symptoms worsen, return to the emergency department. Prescriptions: Levofloxacin [Levaquin 500 MG Tablet] 500 mg PO DAILY #7 tablet
[2024-09-02 14:15] VITALS: TEMP 99.1
[2024-09-02 14:55] LABS: BASOPHIL % 0.2 % (0.1-1.2); Basophil (Absolute #) 0.03 x10^3/uL (0.01-0.08); Eosinophil % 0.4 % (0.7-5.8); Eosinophil (Absolute #) 0.07 x10^3/uL (0.04-0.36); Hemoglobin 8.5 g/dL (11.2-15.7); IMMATURE GRAN # 0.11 x10^3u/L (0.001-0.031); IMMATURE GRAN % 0.7 % (0.001-0.429); Lymphocyte (Absolute #) 1.82 x10^3/uL (1.18-3.74); Lymphocytes % 11.6 % (19.3-51.7); Mean Cell Volume 88.2 fL (79.4-94.8); Mean Corpuscular Hemoglobin 27.8 pg (25.6-32.2); Mean Corpuscular Hgb Concent. 31.5 g/dL (32.2-35.5); Mean Platelet Volume 10.4 fL (9.4-12.3); Neutrophil % 80.1 % (34.0-71.1); Platelet Count 399 x10^3/uL (182-369); Red Blood Count 3.06 x10^6/uL (3.93-5.22); Red Cell Distribution Width 17.3 % (11.7-14.4); White Blood Count 15.6 x10^3/uL (3.98-10.04)
[2024-09-02 15:08] LABS: ALBUMIN 3.1 g/dL (3.5-5.0); ANION GAP 12.5 MEQ/L (5-15); BILIRUBIN,TOTAL 0.5 mg/dL (0.2-1.3); Calcium 8.5 mg/dL (8.4-10.2); Creatinine 1 0.8 mg/dL (0.52-1.04); EST GLOMERULAR FILTRATION RATE 83.3 ML/MIN; Total Protein 6.5 g/dL (6.3-8.2)
[2024-09-02 15:11] LABS: Potassium 2.8 mmol/L (3.5-5.1)
[2024-09-02] MEDS ORDERED: Levofloxacin 500MG/100ML D5W 500 MG/100 ML BAG IV ONE (15:12)
[2024-09-02] MEDS ORDERED: Zofran 4 MG/2 ML VIAL ONE (15:12)
[2024-09-02] MEDS ORDERED: Hydromorphone 1 mg/ml Injection ONE (15:12)
[2024-09-02] MEDS: Hydromorphone 1 mg/ml Injection IV ONE (15:14)
[2024-09-02] MEDS: Zofran 4 MG/2 ML VIAL IV ONE (15:14)
[2024-09-02] MEDS: Levofloxacin 500MG/100ML D5W 500 MG/100 ML BAG IV STA (15:15)
[2024-09-02] MEDS ORDERED: POTASSIUM CHLORIDE 20 mEq IN WATER 100ML 100 ML IV ONE (15:23)
[2024-09-02] MEDS ORDERED: Klor Con ONE (15:23)
[2024-09-02] MEDS: Klor Con PO ONE (15:25)
[2024-09-02] MEDS: POTASSIUM CHLORIDE 20 mEq IN WATER 100ML 20 MEQ/100 ML BAG IV ONE (15:25)
[2024-09-02] MEDS ORDERED: Sodium Chloride 0.9% 500 ML 500 ML IV ONE (15:35)
[2024-09-02] MEDS: Sodium Chloride 0.9% 500 ML 500 ML IV SCH (15:43)
[2024-09-02 17:16] VITALS: BP 119/67; PULSE 87; RESP 15; O2SAT 95
== END 2024-09-02 17:38 | disposition home or self-care (01) ==
LOC: ED 13:02
DX: L03.116 Cellulitis of left lower limb (principal); T81.31XA Disruption of external operation (surgical) wound, not elsewhere classified, initial encounter; I10 Essential (primary) hypertension; E11.9 Type 2 diabetes mellitus without complications; E78.5 Hyperlipidemia, unspecified; Z79.84 Long term (current) use of oral hypoglycemic drugs; Z79.899 Other long term (current) drug therapy
CPT/HCPCS: 36415; 80053; 83605; 84145; 85025; 87040; 87070; 87077; 87186; 96365; 96366; 96368; 96374; 96375; 99284; J1171; J1956; J2405; J3480; A9270-GY